=== PATIENT | male | born 1960 | race Caucasian/White ===

== ENCOUNTER 2020-03-05 13:46 | Outpatient (CLI) | payer OTHER, BC, SELFPAY ==
--- NOTE | ~2020-03-05 | MR_ITS ---
EXAMINATION: MR shoulder RT wo con DATE: 03/05/2020 14:55 INDICATION: Right shoulder pain. TECHNIQUE: Magnetic resonance imaging (MRI) of the right shoulder was performed without intravenous c ontrast. Sequences included axial PD-weighted FS FSE, coronal oblique PD-weighted FS FSE and T2-weigh patricia FS FSE, and sagittal oblique T2-weighted FS FSE and T1-weighted FSE. COMPARISON: None. FINDINGS: Coracoacromial arch: The acromion undersurface is curved in morphology (type II). There is severe acromioclavicular joint osteoarthritis including inferiorly directed osteophytes. There is moderate subacromial/subdeltoid bu rsitis. Rotator cuff: There is a full-thickness tear of anterior supraspinatus tendon measuring 14 mm anterior to posterior by 14 mm proximal to distal. There is severe infraspinatus tendinopathy. Teres minor tendon is arnaldo l. There is moderate subscapularis tendinopathy. There is an interstitial tear of superior subscapula ris tendon. There is no asymmetric fatty atrophy of the rotator cuff muscle bellies. Biceps tendon and glenoid labrum: Biceps tendon is medially subluxed into the subscapularis tendon tear. Intra-articular biceps tendon is normal. There is a degenerative tear of superior labrum. Fluid: There is a small glenohumeral joint effusion. Bones/cartilage: There is cartilage surface irregularity of glenoid and humeral head. IMPRESSION: 1. Full-thickness rotator cuff tear. 2. Medial subluxation of biceps tendon into a partial tear of subscapularis tendon. 3. Mild glenohumeral joint chondrosis. 4. Severe acromioclavicular joint osteoarthritis. 5. Small glenohumeral joint effusion and moderate subacromial/subdeltoid bursitis. Reviewed, dictated and finalized at location A. IMPRESSION: 1. Full-thickness rotator cuff tear. 2. Medial subluxation of biceps tendon into a partial tear of subscapularis ten don. 3. Mild glenohumeral joint chondrosis. 4. Severe acromioclavicular joint osteoarthritis. 5. Small glenohumeral joint effusion and moderate subacromial/subdeltoid bursit is.
== END 2020-03-05 13:47 | disposition home or self-care (01) ==
PROVIDERS: PCP Family Medicine; Visit Provider Orthopaedic Surgery
DX: M54.5 Low back pain (principal); M19.011 Primary osteoarthritis, right shoulder; S43.421A Sprain of right rotator cuff capsule, initial encounter; X58.XXXA Exposure to other specified factors, initial encounter; M75.51 Bursitis of right shoulder
CPT/HCPCS: 73221

== ENCOUNTER 2020-03-06 14:48 | Outpatient (CLI) | payer OTHER, BC, SELFPAY ==
--- NOTE | ~2020-03-06 | MR_ITS ---
EXAMINATION: MR thoracic spine wo con DATE: 03/06/2020 16:29 INDICATION: Mid and lower back pain TECHNIQUE: Magnetic resonance imaging (MRI) of the thoracic spine was performed without intravenous c ontrast. Sagittal localizer T1-weighted FSE of the cervicothoracic spine was obtained. Thoracic spine sequences included sagittal T2-weighted FSE, sagittal T1-weighted SE, Sagittal T2-weighted FS FSE, a nd axial T2-weighted FSE. COMPARISON: None FINDINGS: Alignment is normal.Chronic mild anterior wedging atT11 with 20% anterior vertebral body height loss. There are Schmorl's nodes at the superior and inferior endplates of T8, T11and T12and along the infe rior endplate ofT6. Normal marrow signal. Multilevel mild disc height loss at many levels in the mid and lower thoracic spine. There is normal spinal cord signal. T1-T2: The disc does not extend beyond the endplate margins. There is mild bilateral facet osteoarthr itis. There is mild bilateral neural foraminal stenosis. There is no central canal stenosis. T2-T3: Disc is mildly bulging with superimposed annular fissure and right subarticular zone disc extr usion. There is mild left and moderate right facet osteoarthritis. There is mild left and moderate ri ght neural foraminal stenosis. There is mild central canal stenosis with indentation of the right davion tral surface of the cord. T3-T4: Annular fissure with broad-based disc extrusion extending from the subarticular zone to subart icular zone. There is mild left and moderate right facet osteoarthritis. There is mild left and moder ate right neural foraminal stenosis. There is mild central canal stenosis with indentation of the rig ht ventral surface of the cord. Paravertebral soft tissues are unremarkable. The following levels are specifically discussed: T4-T5: The disc does not extend beyond the endplate margins. There is moderate bilateral facet osteoa rthritis. There is mild bilateral neural foraminal stenosis. There is no central canal stenosis. T5-T6: Disc is mildly bulging. There is moderate left and mild right facet osteoarthritis. There is n o neural foraminal stenosis. There is minimal central canal stenosis. T6-T7: Annular fissure and large central disc extrusion with disc material extending up to 8 mm cepha lad to and 2 mm caudal to the level of the endplates. There is mild bilateral facet osteoarthritis. T here is mild left neural foraminal stenosis. There is mild to moderate central canal stenosis with in dentation of the left ventral surface of the cord. T7-T8: Disc is minimally bulging. There is mild bilateral facet osteoarthritis. There is no neural fo raminal stenosis. There is no central canal stenosis. T8-T9: Disc does not extend beyond the endplate margins. There is mild bilateral facet osteoarthritis . There is no neural foraminal stenosis. There is no central canal stenosis. T9-T10: Disc does not extend beyond the endplate margin. There is moderate bilateral facet osteoarthr itis. There is mild bilateral neural foraminal stenosis. There is no central canal stenosis. T10-T11: Disc is mildly bulging. There is moderate bilateral facet osteoarthritis. There is mild bila teral neural foraminal stenosis. There is mild central canal stenosis. T11-T12: Disc is mildly bulging. There is mild left and moderate right facet osteoarthritis. There is mild left and moderate right neural foraminal stenosis. There is mild central canal stenosis. IMPRESSION: 1. Moderate thoracic spondylosis. Reviewed, dictated and finalized at location A.
--- NOTE | ~2020-03-06 | MR_ITS ---
EXAMINATION: MR lumbar spine wo con DATE: 03/06/2020 16:29 INDICATION: Low back pain TECHNIQUE: Magnetic resonance imaging (MRI) of the lumbar spine was performed without intravenous con trast. Sequences included sagittal T2-weighted FSE, sagittal T2-weighted FS FSE, sagittal T1-weighted FSE, and axial T2-weighted FSE. COMPARISON: None FINDINGS: Alignment is normal. Vertebral body heights are normal. Moderate disc height loss at L1-L2 with assoc iated fibrovascular degenerative endplate changes at both sides of the disc space and small Schmorl's node along the inferior endplate of L1. Marrow signal is otherwise normal. Mild disc height loss at T11-T12, T12-L1, L2-L3 and L4-L5. The conus medullaris terminates at L1-L2. There is normal signal in the caudal spinal cord. Paravertebral soft tissues are unremarkable. The following disc levels are s pecifically discussed: T12-L1: Disc is bulging. There is hypertrophy of the ligamentum flavum. There is mild bilateral face t joint osteoarthritis. There is minimal bilateral neural foraminal stenosis. There is mild central c anal stenosis. L1-L2: Annular fissure with broad-based disc extrusion extending from foraminal zone to foraminal zon e with disc material extending up to 7 mm caudal to the level of the superior endplate of L2. There i s hypertrophy of the ligamentum flavum. There is mild bilateral facet joint osteoarthritis. There is mild to moderate bilateral neural foraminal stenosis. There is severe central canal stenosis with no evident CSF signal surrounding the centrally clustered nerve roots. L2-L3: Disc is bulging. There is hypertrophy of the ligamentum flavum. There is mild bilateral facet joint osteoarthritis. There is mild bilateral neural foraminal stenosis. There is moderate to severe central canal stenosis with negligible CSF signal interspersed among the centrally clustered nerve r oots. L3-L4: Disc is bulging. There is hypertrophy of the ligamentum flavum. There is moderate right and mi ld to moderate left facet joint osteoarthritis. There is moderate right and mild to moderate left geraldine ral foraminal stenosis. There is moderate to severe central canal stenosis with minimal CSF signal al raciel the centrally clustered nerve roots. L4-L5: Annular fissure and broad-based disc extrusion extending from foraminal zone to foraminal zone with disc material extending couple millimeter caudal to the level of the superior endplate of L5. T here is hypertrophy of the ligamentum flavum. There is moderate right and severe left facet joint os teoarthritis. There is moderate bilateral neural foraminal stenosis. There is mild to moderate centra l canal stenosis. L5-S1: Disc is bulging. There is severe bilateral facet joint osteoarthritis. There is moderate bilat eral neural foraminal stenosis. There is no central canal stenosis. IMPRESSION: 1. Moderate lumbar spondylosis with severe central canal stenosis at L1-L2 and moderate to severe duane tral canal stenosis at L2-L3 and L3-L4. Reviewed, dictated and finalized at location A. IMPRESSION: 1. Moderate lumbar spondylosis with severe central canal stenosis at L1-L2 and moderate to severe central canal stenosis at L2-L3 and L3-L4.
== END 2020-03-06 14:49 | disposition home or self-care (01) ==
PROVIDERS: PCP Family Medicine; Visit Provider Orthopaedic Surgery
DX: M47.816 Spondylosis without myelopathy or radiculopathy, lumbar region (principal); M48.061 Spinal stenosis, lumbar region without neurogenic claudication; M47.814 Spondylosis without myelopathy or radiculopathy, thoracic region
CPT/HCPCS: 72146; 72148

== ENCOUNTER 2020-04-24 00:26 | Outpatient (CLI) | payer OTHER, BC, SELFPAY ==
[2020-04-25 00:19] LABS: SARS-CoV-2 RNA PCR Negative
== END 2020-04-24 00:27 | disposition home or self-care (01) ==
LOC: ANHCOVIDDT 00:26
PROVIDERS: PCP Family Medicine; Visit Provider Orthopaedic Surgery
DX: Z01.818 Encounter for other preprocedural examination (principal); Z11.59 Encounter for screening for other viral diseases
CPT/HCPCS: 87635; C9803; U0003

== ENCOUNTER 2020-04-27 02:15 | Day surgery (SDC) | payer OTHER, BC, SELFPAY ==
[2020-04-21 11:33] VITALS: BMI 36.2
--- NOTE | 2020-04-22 12:23 | HP_ITS ---
DATE OF SERVICE: 04/27/2020 ADMIT DIAGNOSIS: Acute rotator cuff tear, right shoulder. HISTORY OF PRESENT ILLNESS: The patient is a 59-year-old male patient of Dr. Brown, who presents today for arthroscopic acromioplasty, mini open rotator cuff repair, possible biceps tenodesis of the right shoulder. He injured this on 01/30 when he was at work. He was coming down a flight of stairs when his arm sleeve caught on the hand rail causing him to turn in the process, losing his balance, he fell down a flight of steps. Since that time, he has been having rather severe pain in the right shoulder. He was initially seen by Dr. Elizabeth on 02/19. On initial evaluation, he was sent for an MRI scan, which did show the patient had a traumatic tear of the entire width of the supraspinatus as well as the upper border of the subscapularis tendons, also appears that long head of the biceps has subluxed medially. He was initially scheduled for surgery earlier this last month; however, his hemoglobin A1c was over 8. He had his medications adjusted and last check his hemoglobin A1c was 7.6. The patient presents today for surgical repair of the rotator cuff tendon. PAST MEDICAL HISTORY: Significant for the type 2 diabetes. He has hypercholesterolemia, gout, hypertensive disorder, GERD as well as some chronic low back pain. CURRENT MEDICATIONS: He takes: 1. Allopurinol 100 mg daily. 2. Baby aspirin daily. 3. Atorvastatin 20 mg daily. 4. Diclofenac 75 mg b.i.d. 5. Vitamin D daily. 6. Fenofibrate 160 mg daily. 7. Glyburide 4 mg daily. 8. Hydrochlorothiazide 25 mg daily. 9. Januvia 100 mg daily. 10. . 11. Metformin 1000 mg b.i.d. 12. Metoprolol ER 50 mg daily. 13. Prevacid 30 mg daily. 14. Sildenafil 100 mg daily. 15. Tramadol p.r.n. 16. Valsartan 320 mg daily. ALLERGIES: NO KNOWN DRUG ALLERGIES. FAMILY HISTORY: Significant for hypertension disorder and diabetes. SOCIAL HISTORY: He is a nonsmoker. He does currently chew tobacco 1 can per day. PREVIOUS SURGERIES: He had his left total knee done in 2009. He has had oral surgery procedure in 2019. PHYSICAL EXAMINATION: VITAL SIGNS: He is 6 feet 1 inch and 293 pounds. Other vital signs per nursing on the morning of surgery. HEENT: Grossly normal. LUNGS: Clear bilaterally. HEART: Regular rate and rhythm. EXTREMITIES: On his right shoulder, he has severe pain with elevation of the arm to 80 degrees. Passively, but does elevate to about 150 with less pain after he passes 100-degree elevation, external rotation 80 without discomfort. Severe pain with internal rotation at L4. He is able do a subscap lift-off. Belly press strength is normal. External rotation is normal, but with moderate pain at the lateral deltoid. He has moderately severe pain position in the arm at 90 degrees of abduction and moderate weakness with abduction testing. Moderate tenderness over the anterior supraspinatus tendon insertion. No significant tenderness over the AC joint. Neck range of motion causes pain between the shoulder blades with full extension. Spurling's maneuver does cause some neck pain and some symptoms between the shoulders. He has normal sensation to the right upper extremity. Biceps muscle has normal contour. 2+ radial pulse. IMAGING DATA: MRI scan again shows full-thickness tear of the entire width of the supraspinatus tendon as well as the upper border of the subscapularis as well as what he appears to have medial subluxation of long head of the biceps tendon. IMPRESSION: The patient has a traumatic rotator cuff tear, right shoulder. Dr. Elizabeth has discussed findings with him as well as options. The patient would like to proceed with surgery at this point for repair of the tendon. Surgical procedur
[2020-04-27] VITALS (8 sets, daily range): BP systolic 102–149; BP diastolic 66–102; PULSE 69–77; RESP 15–20; TEMP 36.2–36.6; O2SAT 95–98
--- NOTE | 2020-04-27 06:17 | ECG_ITS ---
Measurements Intervals [place] Rate: 70 P: 3 OR: 181 QRS: -21 QRSD: 105 T: 20 QT: 397 QTc: 429 Interpretive Statements SINUS RHYTHM DELAYED PRECORDIAL R/S TRANSITION VOLTAGE CRITERIA FOR LVH BORDERLINE T WAVE ABNORMALITY- INFERIOR LEADS BORDERLINE ECG Electronically Signed On 04-27-2020 7:20:42 CDT by Mansoor Vazquez D.O.
[2020-04-27 06:44] LABS: Glucose Point of Care 130 (65-105)
[2020-04-27] MEDS: LACTATED RINGERS 1,000 ML 30 ML IV CONT ×2 (07:00→10:06)
--- NOTE | 2020-04-27 07:18 | WPDANESEPPF ---
Anes - Initial Pre Proc Eval Procedure: Operation Date: 04/27/20 07:30 Proposed Procedures p Right Shoulder Arthroscopy, Right Acromioplasty, Right Mini Open Rotator Cuff Repair, Possible Right Bicep Tenodesis, Proceed As Indicated - Amol Elizabeth MD Date/Time: 04/27/20 07:18 Surgeon: Amol Elizabeth MD Pre Op Diagnosis: Right shoulder acute rotator cuff tear Patient Data Age: 59 Gender: M Height: 6 ft 3 in Weight: 125 kg Allergies Allergy/AdvReac Type Severity Reaction Status Date / Time No Known Allergies Allergy Verified 04/21/20 11:33 Home Medications Medication Instructions Recorded Confirmed Type allopurinol 100 mg PO DAILY 04/21/20 04/21/20 History aspirin 81 mg PO DAILY 04/21/20 04/21/20 History atorvastatin 20 mg PO DAILY 04/21/20 04/21/20 History cyclobenzaprine 10 mg PO DAILY 04/21/20 04/21/20 History diclofenac sodium 75 mg PO BID 04/21/20 04/21/20 History empagliflozin [Jardiance] 25 mg PO DAILY 04/21/20 04/21/20 History ergocalciferol (vitamin D2) 1,250 mcg PO WEEKLY 04/21/20 04/21/20 History fenofibrate 160 mg PO DAILY 04/21/20 04/21/20 History glimepiride 4 mg PO DAILY 04/21/20 04/21/20 History hydrochlorothiazide 25 mg PO DAILY 04/21/20 04/21/20 History icosapent ethyl [Vascepa] 2 g PO BID 04/21/20 04/21/20 History lansoprazole 30 mg PO DAILY 04/21/20 04/21/20 History metformin 1,000 mg PO DAILY 04/21/20 04/21/20 History metoprolol succinate 50 mg PO DAILY 04/21/20 04/21/20 History naproxen sodium [Aleve] 220 mg PO BID PRN 04/21/20 04/21/20 History semaglutide [Ozempic] 0.5 mg SUBCUT WEEKLY 04/21/20 04/21/20 History sildenafil 100 mg PO DIRECTED PRN 04/21/20 04/21/20 History sitagliptin [Januvia] 100 mg PO DAILY 04/21/20 04/21/20 History tramadol 50 mg PO Q8H PRN 04/21/20 04/21/20 History valsartan 320 mg PO DAILY 04/21/20 04/21/20 History Laboratory Tests 04/27/20 06:42 POC Capillary Glucose 130 mg/dl H mg/dl (65-105) Patient hx anesthesia problems: none Family hx anesthesia problems: none PMFSH Past Medical History Medical History Diabetes GERD (gastroesophageal reflux disease) Hyperlipidemia Hypertension Social History Social History Smoking packs per day: 1.5 Smoking cigarettes per day: 30.0 Years smoked: 30 Smoking pack-years: 45.00 Smoking status: Light tobacco smoker Smokeless tobacco user: chewing tobacco Additional smoking assessment comments: QUIT SMOKING 11 YEARS AGO Spiritual care concerns: No Anes - Eval Final PreProcedure Day of Procedure 04/27/20 07:18 Patient weight: obese Heart: regular rate and rhythm Lungs: decreased breath sounds Airway: Mallampati scale class II Neurological: alert and oriented Last oral intake: >/= 8 hours ASA classification: III Emergent: no Anesthetic plan: proceed Anesthesia type and monitoring: general ETT and standard monitoring Informed Consent: The patient's anesthetic plan and its attendant risks and benefits were discussed with the patient/family/POA. Questions were solicited and answers provided to the satisfaction of the patient/family/POA.
--- NOTE | 2020-04-27 07:18 | WPDHPUPDATE1 ---
History and Physical Update Update Date/Time: 04/27/20 07:18 History and Physical has been reviewed, including an updated exam of the patient. There are NO changes in the patient's condition. Risks, benefits, and alternatives have been discussed and questions answered. Patient agrees to proceed with procedure.
--- NOTE | 2020-04-27 07:35 | WPDANESPNB ---
Anes - Peripheral Nerve Block Date/Time: 04/27/20 07:35 I have discussed with the patient/family/POA the placement of a peripheral nerve block for post-operative pain management, including associated risks, benefits, complications, and side effects. Alternative methods of post-operative analgesia were detailed. Questions were solicited and answers provided to the satisfaction of the patient/family/POA. Time-Out: A pre-procedural Time-Out was completed immediately before starting the procedure and confirmed: Patient Identification, Site, Procedure, Patient Position and the Availability of Requisite Equipment. Clinical Indications: Acute post-operative pain management requested by the operative surgeon. Nerve Block Insertion Note Anes-nerve block: interscalene right Patient position: other (sitting) Skin prep: chlorhexidine Needle: 22 gauge, stimulating, insulated echogenic needle. Needle length: 50 mm Technique: nerve stimulation lost at (mA) (0.3) and ultrasound Injectate: bupivacaine 0.5% with epi 5 mcg/ml (30ml) Observations: tolerated well Complications: none Procedure start time:: 721 Procedure end time:: 729
[2020-04-27] MEDS: ceFAZolin 3 GM/D5W 100 ML 100 ML IVPB (07:36)
[2020-04-27] MEDS: ceFAZolin SODIUM 1 GM VIAL IRRIGATION (07:53)
--- NOTE | 2020-04-27 10:23 | PM.PROC ---
Procedure Note - Detailed Date of procedure: 04/27/20 Pre-op diagnosis: Right shoulder acute rotator cuff tear Post-op diagnosis: same Procedure performed: Arthroscopic limited debridement right shoulder minimal acromioplasty, CA ligament debridement, debridement superior labrum, mini open rotator cuff repair right shoulder. Description of procedure: Patient was brought to the operating room and general anesthesia was administered. He had full range of motion of the shoulder. He was carefully position on the operating table in the beach chair position. The neck secured in a neutral alignment in the right shoulder prepped draped in usual fashion. Posterior portal was placed. The articular surfaces looked normal except for some mild fraying of the superior humeral head articular cartilage. There was mild tearing of the superior labrum which was debrided. The superior labrum and the biceps anchor were otherwise normal. Tear of the supraspinatus and upper infraspinatus was noted. Subscapularis looked normal. The 70 the screw could degree scope was applied and we evaluated the biceps tendon the bicipital groove and I could not appreciate any subluxation and looking down the bicipital groove I did not see any detachment of the septum and the long head of the biceps tendon was perfectly smooth all the way down. The medial tristan was intact. The subscapularis insertion looked completely normal. The posterior lever push test was utilized and there was no detachment of the subscapularis insertion whatsoever. The upper border and the posterior surface looks smooth and shiny. The biceps was mobilized with the shaver in the anterior superior portal confirming absence of any instability or fraying. The arthroscope was placed in the subacromial space. There is extensive fraying of the CA ligament and the full-thickness rotator cuff tear was visualized. There was a U shaped tear. It involved the supraspinatus and upper infraspinatus tendons. Mid lateral portal was placed in anterior superior outflow portal placed and shaver placed the mid-lateral portal debriding the CA ligament and then the ArthroCare cautery device used to continue debriding the CA ligament off the anterior inferior acromial surface. Additionally a Niko rasp was inserted to smooth the anterior surface of the acromion further. He had a type 1 acromion so we did not feel that it was necessary to remove any acromial bone. The instruments were removed and the rest of the skin covered with Ioban. Outer gloves were changed. A 2-1/2 inch longitudinal incision was made from the top of the acromion extending anterolaterally. This is made over the anterolateral deltoid in the tendinous raphe between the anterior middle heads of the deltoid was identified and incised and we utilized a 4 have cm split and an additional 5 mm of anterior deltoid were released off the anterior acromion for improved visualization of the underlying rotator cuff tear which was inspected. It was U shaped in was about 22 mm in width. We increased this to about 25 mm debriding the thin margins at the anterior and posterior borders of tear. The tendon quality seemed to be very good. I did not appreciate any articular side or bursal sided tendinopathy change. We placed a stay suture and used the large tear elevator to free up any bursal adhesions in the surfaces of the infraspinatus and supraspinatus muscles. We then placed 3 Arthrex suture tapes each placed through the tendon 16 mm medial to the lateral edge and these were each placed about this 16 or 17 mm apart. We then passed a 2. Ethibond suture through the greater tuberosity at the medial margin of the footprint and shuttled the center suture tape through affecting anatomic reduction of tendon which mobilize easily. Prior to doing that we carefully prepared the greater tuberosity bed scraping the surface with a clean scalpel blade to surface of bleeding bone. There were was no evidence of
[2020-04-27] MEDS: ceFAZolin 2 GM/D5W 50 ML 2 GM/50 ML BAG IVPB (11:01)
--- NOTE | 2020-04-27 12:15 | SUR.PHASEII ---
1115 DR. MONTANEZ CALLED TO ASK RE: DRESSING INSTRUCTIONS.
--- NOTE | 2020-04-27 12:15 | SUR.PHASEII ---
1130 PT INSTRUCTED TO KEEP RIGHT SHOULDER DRESSING ON UNTIL PT APPOINTMENT. NO SHOWER UNTIL AFTER THEN. INSTRUCTIONS HAND-WRITTEN ON DISCHARGE PAPERS.
[2020-04-28 07:35] LABS: Glucose Point of Care 197 (65-105)
== END 2020-04-27 12:00 | disposition home or self-care (01) ==
PROVIDERS: PCP Family Medicine; Visit Provider Orthopaedic Surgery
PROC: (CPT 29805; principal; 2020-04-27 07:30)
DX: S46.011A Strain of muscle(s) and tendon(s) of the rotator cuff of right shoulder, initial encounter (principal); W10.8XXA Fall (on) (from) other stairs and steps, initial encounter; Y92.9 Unspecified place or not applicable; Y99.0 Civilian activity done for income or pay; I10 Essential (primary) hypertension; E11.9 Type 2 diabetes mellitus without complications; E78.5 Hyperlipidemia, unspecified; K21.9 Gastro-esophageal reflux disease without esophagitis; Z79.82 Long term (current) use of aspirin; Z79.84 Long term (current) use of oral hypoglycemic drugs; F17.220 Nicotine dependence, chewing tobacco, uncomplicated; E66.9 Obesity, unspecified; Z68.34 Body mass index [BMI] 34.0-34.9, adult
CPT/HCPCS: 23410; 29823; 93005; A4565; A9270; J0330; J0690; J1100; J1170; J2250; J2405; J2704; J3010; J3370; J7120

== ENCOUNTER 2020-09-14 07:52 | Outpatient (CLI) | payer OTHER, BC, SELFPAY ==
--- NOTE | ~2020-09-14 | XR_ITS ---
EXAMINATION: XR chest 2V 09/14/2020 09:55 INDICATION: Preop. PROCEDURE: 2 view chest COMPARISON: No prior studies for comparison. FINDINGS: The lungs are clear. The cardiomediastinal silhouette is within normal limits. There are no pleural effusions. There is no pneumothorax suspected. IMPRESSION: 1: NO ACUTE CARDIOPULMONARY DISEASE. Reviewed, dictated and finalized at location A. NG ROOM ATTENDANT
[2020-09-14 08:50] LABS: Basophils Absolute Auto 0.1 K/mm3 (0.0-0.1); Basophils Percent Auto 0.6 % (0.2-1.2); Eosinophils Absolute Auto 0.2 K/mm3 (0-0.3); Eosinophils Percent Auto 2.2 % (0-4.4); Hematocrit 49.7 % (42.0-52.0); Hemoglobin 16.8 g/dL (14.0-18.0); Immature Granulocyte Absolute 0.09 K/mm3 (0.00-0.031); Immature Granulocyte Percent A 1.1 % (0-0.5); Lymphocytes Absolute Auto 2.48 K/mm3 (0.9-3.2); Lymphocytes Percent Auto 29.7 % (18.3-44.2); Mean Corpuscular HGB Conc 33.8 g/dl (32-36); Mean Corpuscular Hemoglobin 28.4 pg (26-34); Mean Platelet Volume 8.6 fl (7.4-10.4); Monocytes Absolute Auto 0.8 K/mm3 (0.1-0.6); Monocytes Percent Auto 9.6 % (2.6-8.5); Neutrophils Absolute Auto 4.8 K/mm3 (1.3-6.7); Neutrophils Percent Auto 56.8 % (45.5-73.1); Platelet Count Result 294 k/mm3 (150-375); Red Blood Count 5.92 M/mm3 (4.6-6.20); White Blood Count 8.4 K/mm3 (4.5-10.0)
[2020-09-14 08:53] LABS: Add Urine Microscopic? YES; Appearance Urine Clear (Clear); Bilirubin Urine Negative (Negative); Blood Urine Negative (Negative); Color Urine Yellow (Yellow); Glucose Urine UA 3+ mg/dL (Negative); Ketones Urine Negative (Negative); Leukocyte Esterase Ur Negative LEU/UL (NEGATIVE); Mucus Urine Rare /lpf; Nitrate Urine Negative (Negative); Protein Urine Negative (Negative); RBC Urine 0-2 /hpf (0-2); Urobilinogen Urine Negative mg/dL (<2.0); WBC Urine 0-3 /hpf (0-3)
[2020-09-14 09:00] LABS: INR 0.9; Prothrombin Time 12.3 Seconds (11.1-14.7)
[2020-09-14 09:01] LABS: Hemoglobin A1C 5.9 % (<5.7); Partial Thromboplastin Time 26.4 SECONDS (22.3-36.8)
[2020-09-14 09:03] LABS: Alanine Aminotransferase 29 U/L (4-50); Albumin Level 4.7 g/dL (3.5-5.1); Alkaline Phosphatase 77 U/L (38-126); Anion Gap 15 mmol/L (8-16); Aspartate Amino Transferase 27 U/L (17-59); Bilirubin,Total 0.4 mg/dL (0.2-1.3); Blood Urea Nitrogen 34 mg/dL (9-20); Calcium 9.6 mg/dL (8.4-10.2); Carbon Dioxide 23 mmol/L (22-30); Chloride 105 mmol/L (98-107); Estimated Glomerular Filt Rate > 60; Glucose 142 mg/dL (75-110); Potassium 3.9 mmol/L (3.4-5.0); Sodium 143 mmol/L (137-145)
--- NOTE | 2020-09-14 09:10 | ECG_ITS ---
Measurements Intervals [place] Rate: 75 P: -1 NV: 171 QRS: -23 QRSD: 99 T: 29 QT: 374 QTc: 420 Interpretive Statements SINUS RHYTHM BASELINE ARTIFACT- I, III, AVF NORMAL ECG Electronically Signed On 09-14-2020 9:24:03 DIRECTOR OF USER EXPERIENCE by Mansoor Vazquez D.O.
[2020-09-14 09:16] LABS: Prealbumin 33.8 mg/dL (17.6-36.0)
[2020-09-14 09:43] LABS: HIV 1/2 Ab P24 Ag Result Negative (Negative); Vitamin D 25 Hydroxy 51.2 ng/mL
[2020-09-14 09:55] LABS: Hepatitis B Surface Antigen Negative (Negative)
[2020-09-14 10:01] LABS: HAV RESULT Negative (Negative); Hepatitis B Core IgM Result Negative (Negative)
[2020-09-14 10:13] LABS: Hepatitis C Virus Antibody Negative (Negative)
[2020-09-19 14:38] LABS: Testosterone Total 192 ng/dL (250-1100)
== END 2020-09-14 07:53 | disposition home or self-care (01) ==
PROVIDERS: PCP Family Medicine; Visit Provider Orthopaedic Surgery
DX: Z01.818 Encounter for other preprocedural examination (principal); M43.06 Spondylolysis, lumbar region; Z51.81 Encounter for therapeutic drug level monitoring; Z79.899 Other long term (current) drug therapy
CPT/HCPCS: 36415; 71046; 80053; 80074; 81001; 82306; 83036; 84134; 84402; 84403; 85025; 85610; 85730; 86703; 87081; 87086; 93005; G0432

== ENCOUNTER 2020-10-19 10:07 | Outpatient (CLI) | payer OTHER, BC, SELFPAY ==
[2020-10-19 11:02] LABS: Basophils Absolute Auto 0.1 K/mm3 (0.0-0.1); Basophils Percent Auto 0.9 % (0.2-1.2); Eosinophils Absolute Auto 0.3 K/mm3 (0-0.3); Eosinophils Percent Auto 2.3 % (0-4.4); Hematocrit 41.5 % (42.0-52.0); Hemoglobin 13.8 g/dL (14.0-18.0); Immature Granulocyte Absolute 0.19 K/mm3 (0.00-0.031); Immature Granulocyte Percent A 1.8 % (0-0.5); Lymphocytes Absolute Auto 2.33 K/mm3 (0.9-3.2); Lymphocytes Percent Auto 21.8 % (18.3-44.2); Mean Corpuscular HGB Conc 33.3 g/dl (32-36); Mean Corpuscular Hemoglobin 27.9 pg (26-34); Mean Platelet Volume 8.4 fl (7.4-10.4); Monocytes Absolute Auto 0.9 K/mm3 (0.1-0.6); Monocytes Percent Auto 8.2 % (2.6-8.5); Neutrophils Absolute Auto 6.9 K/mm3 (1.3-6.7); Platelet Count Result 510 k/mm3 (150-375); Red Blood Count 4.94 M/mm3 (4.6-6.20); Red Cell Distribution Width 13.4 % (11.5-14.5); White Blood Count 10.7 K/mm3 (4.5-10.0)
[2020-10-19 11:23] LABS: Alanine Aminotransferase 24 U/L (4-50); Albumin Level 4.1 g/dL (3.5-5.1); Alkaline Phosphatase 141 U/L (38-126); Anion Gap 10 mmol/L (8-16); Aspartate Amino Transferase 27 U/L (17-59); Bilirubin,Total 0.5 mg/dL (0.2-1.3); Blood Urea Nitrogen 14 mg/dL (9-20); CRP 4.2 mg/dL (<1.0); Calcium 10.1 mg/dL (8.4-10.2); Carbon Dioxide 28 mmol/L (22-30); Chloride 102 mmol/L (98-107); Estimated Glomerular Filt Rate > 60; Glucose 146 mg/dL (75-110); Potassium 4.7 mmol/L (3.4-5.0); Sodium 140 mmol/L (137-145)
[2020-10-19 11:38] LABS: Erythrocyte Sedimentation Rate 27 mm/hr (0-20)
[2020-10-20 10:09] LABS: Prealbumin 20.9 mg/dL (17.6-36.0)
== END 2020-10-19 10:08 | disposition home or self-care (01) ==
PROVIDERS: PCP Family Medicine; Visit Provider Orthopaedic Surgery
DX: Z98.890 Other specified postprocedural states (principal)
CPT/HCPCS: 36415; 80053; 84134; 85025; 85652; 86140

== ENCOUNTER 2020-10-23 04:45 | Emergency (ER) | payer BC, SELFPAY ==
--- NOTE | ~2020-10-23 | XR_ITS ---
EXAMINATION: XR foot LT min 3V DATE: 10/23/2020 06:12 INDICATION: One day of left foot pain TECHNIQUE: Dorsoplantar, two oblique and lateral views of the left foot were obtained. COMPARISON: None. FINDINGS: Bone alignment is normal. Old healed fracture at the proximal diaphysis of the second metatarsal. No acute fractures identified. 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 Small enthesophytes along the dorsal and medial aspect of the medial cuneiform. No periostea l reaction or cortical erosions. Soft tissues are unremarkable. IMPRESSION: 1. Old healed second metatarsal shaft fracture. No acute osseous abnormality. Reviewed, dictated and finalized at location A. [facility] [employer]
[2020-10-23 04:51] VITALS: BP 127/101; PULSE 90; RESP 18; TEMP 36.3; O2SAT 95
[2020-10-23] MEDS: MORPHINE SULFATE (*CRX) 4 MG/ML INJ IV PUSH (05:20)
--- NOTE | 2020-10-23 05:26 | PC.NURSE ---
verbal order for zofran 4mg once per erp dr estrada
[2020-10-23] MEDS: ONDANSETRON INJ 4 MG/2 ML VIAL IV PUSH (05:29)
[2020-10-23 05:32] LABS: Basophils Absolute Auto 0.1 K/mm3 (0.0-0.1); Basophils Percent Auto 0.8 % (0.2-1.2); Eosinophils Absolute Auto 0.3 K/mm3 (0-0.3); Eosinophils Percent Auto 2.5 % (0-4.4); Hematocrit 39.8 % (42.0-52.0); Hemoglobin 13.1 g/dL (14.0-18.0); Immature Granulocyte Absolute 0.14 K/mm3 (0.00-0.031); Immature Granulocyte Percent A 1.3 % (0-0.5); Lymphocytes Absolute Auto 2.67 K/mm3 (0.9-3.2); Lymphocytes Percent Auto 25.7 % (18.3-44.2); Mean Corpuscular HGB Conc 32.9 g/dl (32-36); Mean Corpuscular Hemoglobin 26.8 pg (26-34); Mean Corpuscular Volume 81.4 fl (80-100); Mean Platelet Volume 8.6 fl (7.4-10.4); Monocytes Absolute Auto 1.2 K/mm3 (0.1-0.6); Monocytes Percent Auto 11.2 % (2.6-8.5); Neutrophils Absolute Auto 6.1 K/mm3 (1.3-6.7); Neutrophils Percent Auto 58.5 % (45.5-73.1); Platelet Count Result 480 k/mm3 (150-375); Red Blood Count 4.89 M/mm3 (4.6-6.20); Red Cell Distribution Width 13.2 % (11.5-14.5); White Blood Count 10.4 K/mm3 (4.5-10.0)
[2020-10-23 05:53] LABS: Lactic Acid Reflex 1.7 mmol/L (0.7-2.1)
[2020-10-23 05:54] LABS: Alanine Aminotransferase 17 U/L (4-50); Albumin Level 4.1 g/dL (3.5-5.1); Alkaline Phosphatase 146 U/L (38-126); Anion Gap 11 mmol/L (8-16); Aspartate Amino Transferase 21 U/L (17-59); Bilirubin,Total 0.5 mg/dL (0.2-1.3); Blood Urea Nitrogen 17 mg/dL (9-20); Calcium 9.7 mg/dL (8.4-10.2); Carbon Dioxide 21 mmol/L (22-30); Chloride 103 mmol/L (98-107); Estimated CRCL calculation 105 ml/min; Estimated Glomerular Filt Rate > 60; Glucose 154 mg/dL (75-110); Potassium 4.1 mmol/L (3.4-5.0); Sodium 135 mmol/L (137-145)
--- NOTE | 2020-10-23 05:56 | ED.GENADULT ---
HPI - General Adult General Chief complaint: Extremity Injury, Lower Stated complaint: left foot pain Time Seen by Provider: 10/23/20 04:53 History of Present Illness HPI narrative: Patient is a 60-year-old gentleman who presents the emergency department with chief complaint of left foot pain. Patient reports he recently had back surgery and noticed the other evening that he started having pain in his left first and second toes. Patient reports he has prior history of metatarsal fracture in his foot and reports that the pain is worse with movement and improved with rest patient reports that his toe appears to be slightly discolored. Patient unsure if he has had trauma but did stumble the other day. Patient states that he has history of atrial fibrillation after a recent back surgery and is on a daily aspirin for that. Patient reports that he has been taking Percocet for pain after his surgery. Patient denies fever denies chills Related Data Home Medications Medication Instructions Recorded Confirmed Januvia 100 mg PO DAILY 04/21/20 04/27/20 Jardiance 25 mg PO DAILY 04/21/20 04/27/20 Ozempic 0.5 mg SUBCUT WEEKLY 04/21/20 04/27/20 allopurinol 100 mg PO DAILY 04/21/20 04/27/20 aspirin 81 mg PO DAILY 04/21/20 04/27/20 atorvastatin 20 mg PO DAILY 04/21/20 04/27/20 ergocalciferol (vitamin D2) 1,250 mcg PO WEEKLY 04/21/20 04/27/20 fenofibrate 160 mg PO DAILY 04/21/20 04/27/20 glimepiride 4 mg PO DAILY 04/21/20 04/27/20 hydrochlorothiazide 25 mg PO DAILY 04/21/20 04/27/20 icosapent ethyl [Vascepa] 2 g PO BID 04/21/20 04/27/20 lansoprazole 30 mg PO DAILY 04/21/20 04/27/20 metformin 1,000 mg PO DAILY 04/21/20 04/27/20 metoprolol succinate 50 mg PO BID 04/21/20 04/27/20 sildenafil 100 mg PO DIRECTED PRN 04/21/20 04/27/20 valsartan 320 mg PO DAILY 04/21/20 04/27/20 oxycodone-acetaminophen 1 tablet PO Q4H PRN 10/23/20 Allergies Allergy/AdvReac Type Severity Reaction Status Date / Time No Known Allergies Allergy Verified 10/23/20 04:56 Review of Systems Review of Systems: Narrative: A 10 system review of systems was completed on the patient and is negative except for what is stated in the HPI. Nursing and ancillary documentation was reviewed. [facility] Past Medical History Medical History (Updated 10/23/20 @ 06:36 by Francisco Davis MD) Diabetes GERD (gastroesophageal reflux disease) Hyperlipidemia Hypertension Social History Social History Smoking packs per day: 1.5 Smoking cigarettes per day: 30.0 Years smoked: 30 Smoking pack-years: 45.00 Smoking status: Light tobacco smoker Smokeless tobacco user: chewing tobacco Additional smoking assessment comments: QUIT SMOKING 11 YEARS AGO Gender identity (if verbalized by the patient): Male Sexual Orientation (if Verbalized by the Patient): Straight or Heterosexual Spiritual care concerns: No Exam Narrative: Exam Narrative: GENERAL: Well-appearing, well-nourished, and in no acute distress. HEAD: Normocephalic, atraumatic. EYES: PERRLA and EOMI. ENT: Nares clear, no rhinorrhea or epistaxis. Mucous membranes moist. NECK: Supple. CHEST: Clear to auscultation. No respiratory distress. HEART: Regular rate and rhythm. No murmur heard. Normal peripheral pulses. ABDOMEN: Soft, nontender, nondistended, normal active bowel sounds. EXTREMITIES: Normal range of motion. No edema. There is tenderness to palpation in the left foot at the digits of the first and second toe SKIN: Warm, dry, no rash. NEURO: No focal deficits. Alert and oriented x3. PSYCH: Normal mood and affect. Course Vital Signs Vital signs: Vital Signs Temperature 36.3 C L 10/23/20 04:51 Pulse Rate 90 10/23/20 04:51 Respiratory Rate 18 10/23/20 04:51 Blood Pressure 127/101 H 10/23/20 04:51 Pulse Oximetry 95 10/23/20 04:51 Temperature 36.3 C L 10/23/20 04:51 Pulse Rate 90 10/23/20 04:51 Respirat
[2020-10-23] MEDS: HYDROmorphone HCL INJ (*CRX) 1 MG/ML SYR IV PUSH (06:20)
== END 2020-10-23 07:01 | disposition home or self-care (01) ==
PROVIDERS: Emergency Provider Emergency Medicine; PCP Family Medicine
DX: M79.672 Pain in left foot (principal); E11.9 Type 2 diabetes mellitus without complications; K21.9 Gastro-esophageal reflux disease without esophagitis; E78.5 Hyperlipidemia, unspecified; I10 Essential (primary) hypertension; Z87.891 Personal history of nicotine dependence; Z98.890 Other specified postprocedural states; Z79.82 Long term (current) use of aspirin; Z79.84 Long term (current) use of oral hypoglycemic drugs
CPT/HCPCS: 36415; 73630; 80053; 83605; 85025; 96374; 96375; 99284; J1170; J2270; J2405

== ENCOUNTER 2020-10-23 19:09 | Emergency (ER) | payer BC, SELFPAY ==
[2020-10-23 19:14] VITALS: BP 123/95; PULSE 88; RESP 16; TEMP 36.4; O2SAT 97
--- NOTE | 2020-10-23 19:36 | ED.GENADULT ---
HPI - General Adult General Chief complaint: Extremity Injury, Lower Stated complaint: left foot pain Time Seen by Provider: 10/23/20 19:15 Source: patient, family and old records reviewed Mode of arrival: ambulatory Limitations: no limitations History of Present Illness HPI narrative: Patient is a 60-year-old male who presents to emergency department for evaluation of left foot pain that began over the last day patient was seen here this morning had negative radiographs was sent home notes that he continues to have pain pain began in the left great toe and is now involving the forefoot midfoot and lateral aspect of the foot patient notes swelling and discomfort denies injury trauma similar occurrence in the past. Patient denies fever chills injury trauma or other complaints and on arrival is in no distress pain is elicited with even light touch or activity Related Data Home Medications Medication Instructions Recorded Confirmed Januvia 100 mg PO DAILY 04/21/20 04/27/20 Jardiance 25 mg PO DAILY 04/21/20 04/27/20 Ozempic 0.5 mg SUBCUT WEEKLY 04/21/20 04/27/20 allopurinol 100 mg PO DAILY 04/21/20 04/27/20 aspirin 81 mg PO DAILY 04/21/20 04/27/20 atorvastatin 20 mg PO DAILY 04/21/20 04/27/20 ergocalciferol (vitamin D2) 1,250 mcg PO WEEKLY 04/21/20 04/27/20 fenofibrate 160 mg PO DAILY 04/21/20 04/27/20 glimepiride 4 mg PO DAILY 04/21/20 04/27/20 hydrochlorothiazide 25 mg PO DAILY 04/21/20 04/27/20 icosapent ethyl [Vascepa] 2 g PO BID 04/21/20 04/27/20 lansoprazole 30 mg PO DAILY 04/21/20 04/27/20 metformin 1,000 mg PO DAILY 04/21/20 04/27/20 metoprolol succinate 50 mg PO BID 04/21/20 04/27/20 sildenafil 100 mg PO DIRECTED PRN 04/21/20 04/27/20 valsartan 320 mg PO DAILY 04/21/20 04/27/20 oxycodone-acetaminophen 1 tablet PO Q4H PRN 10/23/20 Allergies Allergy/AdvReac Type Severity Reaction Status Date / Time No Known Allergies Allergy Verified 10/23/20 04:56 Review of Systems Review of Systems: All systems reviewed & are unremarkable except as noted in HPI and below PMFSH Past Medical History Medical History (Updated 10/23/20 @ 20:48 by Rob Delgado PA-C) Diabetes GERD (gastroesophageal reflux disease) Hyperlipidemia Hypertension Surgical History Surgical History History of orthopedic surgery Social History Social History Smoking packs per day: 1.5 Smoking cigarettes per day: 30.0 Years smoked: 30 Smoking pack-years: 45.00 Smoking status: Light tobacco smoker Smokeless tobacco user: chewing tobacco Additional smoking assessment comments: QUIT SMOKING 11 YEARS AGO Gender identity (if verbalized by the patient): Male Spiritual care concerns: No Exam Narrative: Exam Narrative: GENERAL: Well-appearing, well-nourished, and in no acute distress. HEAD: Normocephalic, atraumatic. EYES: PERRLA and EOMI. ENT: Nares clear, no rhinorrhea or epistaxis. Mucous membranes moist. CHEST: Clear to auscultation. No respiratory distress. No wheezes rales or rhonchi HEART: Regular rate and rhythm. No murmur heard. Normal peripheral pulses. EXTREMITIES: Normal range of motion. No edema. Slight swelling of the forefoot and midfoot no erythema pain to the left great toe and at the base of the fifth metatarsal with even light touch activity or movement SKIN: Warm, dry, no rash. NEURO: No focal deficits. Alert and oriented x3. Neurovascularly intact. Capillary refill less than 2 seconds PSYCH: Normal mood and affect. Course Course Emergency Course: Patient presented with findings consistent with inflammatory arthritis will be managed with NSAIDs was given medications in the emergency department and advised to follow with primary care for further evaluation Vital Signs Vital signs: Vital Signs Temperature 97.6 F 10/23/20 19:14 Pulse Rate 88 10/23/20 19:14 Respiratory Rate 16
[2020-10-23] MEDS: KETOROLAC 30 MG/ML VIAL (*BKC) IV PUSH (19:45)
[2020-10-23] MEDS: HYDROcodone/acetaminophen (*CRX) 7.5-325 MG TABLET 1 TAB PO (19:45)
[2020-10-23] MEDS: SODIUM CHLORIDE 0.9% IV 500 ML 999 ML IV CONT (19:45)
[2020-10-23] MEDS: COLCHICINE 0.6 MG TABLET 1.2 MG PO (19:58)
[2020-10-23 20:00] LABS: Basophils Absolute Auto 0.1 K/mm3 (0.0-0.1); Basophils Percent Auto 0.7 % (0.2-1.2); Eosinophils Absolute Auto 0.3 K/mm3 (0-0.3); Hematocrit 37.5 % (42.0-52.0); Hemoglobin 12.7 g/dL (14.0-18.0); Immature Granulocyte Absolute 0.11 K/mm3 (0.00-0.031); Immature Granulocyte Percent A 1.1 % (0-0.5); Lymphocytes Percent Auto 27.8 % (18.3-44.2); Mean Corpuscular HGB Conc 33.9 g/dl (32-36); Mean Corpuscular Hemoglobin 27.9 pg (26-34); Mean Corpuscular Volume 82.4 fl (80-100); Mean Platelet Volume 8.5 fl (7.4-10.4); Monocytes Absolute Auto 1.1 K/mm3 (0.1-0.6); Monocytes Percent Auto 11.4 % (2.6-8.5); Neutrophils Absolute Auto 5.4 K/mm3 (1.3-6.7); Platelet Count Result 426 k/mm3 (150-375); Red Blood Count 4.55 M/mm3 (4.6-6.20); Red Cell Distribution Width 13.4 % (11.5-14.5); White Blood Count 9.7 K/mm3 (4.5-10.0)
[2020-10-23 20:11] LABS: Anion Gap 11 mmol/L (8-16); Blood Urea Nitrogen 19 mg/dL (9-20); Calcium 9.8 mg/dL (8.4-10.2); Carbon Dioxide 24 mmol/L (22-30); Chloride 101 mmol/L (98-107); Estimated Glomerular Filt Rate > 60; Glucose 125 mg/dL (75-110); Potassium 4.2 mmol/L (3.4-5.0); Sodium 136 mmol/L (137-145)
[2020-10-23 20:28] LABS: CRP 16.9 mg/dL (<1.0)
[2020-10-23 20:40] LABS: Erythrocyte Sedimentation Rate 114 mm/hr (0-20)
[2020-10-23] MEDS: COLCHICINE 0.6 MG TABLET PO (20:54)
== END 2020-10-23 21:24 | disposition home or self-care (01) ==
PROVIDERS: Emergency Medicine Emergency Medical Services; Emergency Provider Emergency Medicine; PCP Family Medicine
DX: M79.672 Pain in left foot (principal); E11.9 Type 2 diabetes mellitus without complications; K21.9 Gastro-esophageal reflux disease without esophagitis; E78.5 Hyperlipidemia, unspecified; I10 Essential (primary) hypertension; Z79.84 Long term (current) use of oral hypoglycemic drugs; Z79.82 Long term (current) use of aspirin; Z87.891 Personal history of nicotine dependence
CPT/HCPCS: 36415; 73630; 80048; 80053; 83605; 84550; 85025; 85652; 86140; 96361; 96374; 96375; 99284; A9270; J1170; J1885; J2270; J2405; J7040